=== PATIENT | female | born 1995 | race Caucasian/White ===

== ENCOUNTER 2022-04-15 18:45 | Inpatient (IN) | payer BC, SELFPAY ==
--- NOTE | 2022-04-15 18:46 | ED.C_ITS ---
HPI - Psych General: Chief Complaint: Psychiatric Symptoms Stated Complaint: SI/HF Time Seen by Provider: 04/15/22 18:45 History of Present Illness: Ms. Eubanks is a 26-year-old lady with likely history of anxiety depression presenting to the emergency department due to alcohol intoxication and possible suicidal ideation. She reports over the past week drinking more to self medicate from her anxiety and depression. Apparently she was drinking today and went outside and was running around trees when someone saw her and called 911. She does not recall specific statements that she made however likely reports that she was said something about being better off not here. She denies plan to harm herself or history of harming herself. She is not currently on psychiatric medications. Otherwise denies medical concerns. No other specific changes in health, exacerbating, or al leviating factors identified. Upon further observation in the emergency department patient seems to have conversations with the TV. When asked about this she endorses a few year history of feeling like the TV is talking about her or referencing her current situation. Onset (ago): day(s) Duration: getting worse Context: recent alcohol abuse Review of Systems General: Reports: 10 or more systems reviewed and unremarkable except in HPI and below PFSH ED PFSH: Medical History (Updated 04/22/22 @ 00:00 by ) Psychiatric symptoms Physical Exam Const: COMMON NORMALS: alert GENERAL APPEARANCE: cooperative and well developed HENMT: COMMON NORMALS: normocephalic and atraumatic HEAD & SCALP: normocephalic and atraumatic Eye: COMMON NORMALS: conjunctivae normal CONJUNCTIVA: Yes conjunctivae normal SCLERA: sclerae normal Neck/C-Spine: COMMON NORMALS: supple GENERAL: Yes trachea midline Resp: COMMON NORMALS: normal respiratory effort EFFORT & INSPECTION: Yes able to speak in complete sentences Cardio: COMMON NORMALS: regular rate and regular rhythm RATE: regular rate RHYTHM: regular rhythm GI: COMMON NORMALS: Soft to palpation PALPATION: Yes Soft to palpation and No Tenderness to palpation present (GI) PERCUSSION: normal to percussion Extremity: GENERAL: Yes normal exam except as noted and No edema Neuro: COMMON NORMALS: moves all extremities SENSORIUM/ORIENTATION: Yes alert and No Orientation impaired OTHER: Appears clinically intoxicated Psych: COMMON NORMALS: mental status grossly normal and Normal thought process present THOUGHT PROCESS: Normal thought process present Course Vital Signs: Vital signs: Vital Signs Temperature 98.1 F 04/21/22 10:53 Pulse Rate 94 04/21/22 10:53 Respiratory Rate 18 04/21/22 10:53 Blood Pressure 113/79 04/21/22 10:53 Pulse Oximetry 98 04/21/22 10:53 Oxygen Delivery Me thod 04/21/22 06:34 MDM - Psych Medical Decision Making 26-year-old female presenting with possible suicidal ideation in the context of alcohol misuse. Patient appears clinically intoxicated which somewhat limits reliability of additional history. No significant hematologic abnormality, mild evidence of dehydration on metabolic panel. No UTI, hCG negative. Toxic ingestions negative with exception of elevated ethyl alcohol level at 180 mg/dL. No indication for imaging On reassessment patient clinically improved with depressed intoxication but does exhibit evidence of talking to the television. Upon clarification of history this is going on for some period of time. She describes it as just coincidence however I am concerned that she is exhibiting symptoms of ideas of reference or other underlying psychiatric symptoms. The results of ED evaluation were discussed with the patient including plan for admission due to requirement for level of care not available if discharged to prevent significant worsening/deterioration. Patient agreeable with plan. Based on ED evaluation at this point there is no obvious condition that would preclude the patient from inpatient management of psychiatric symptoms. Discussed case with psychiatry service and patient admitted to neuropsych unit. Medical Records I reviewed the patient's medical records. Lab Data I reviewed the patient's lab results. : 04/15/22 19:25 04/15/22 19:25 Laboratory Results WBC 6.2 10^3/uL (4.0-10.0) 04/15/22 19: RBC 4.23 10^6/uL (4.1-5.3) 04/15/22 19:25 Hgb 13.3 g/dL (11.5-15.3) 04/15/22 19: Hct 41.8 % (37.0-47.0) 04/15/22 19:25 MCV 98.8 fl (81-99) 04/15/22 19:25 MCH 31.4 pg (28.0-34.0) 04/15/22 19: MCHC 31.8 g/dL (30.0-36.0) 04/15/22 19: RDW 13.9 % (12.1-15.1) 04/15/22 19:25 Plt Count 251 10^3/cmm (130-400) 04/15/22 19:25 MPV 8.9 fL (7.4-10.4) 04/15/22 19:25 Neut % (Auto) 64.6 % 04/15/22:25 Lymph % (Auto) 25.7 % 04/15/22:25 [place] % (Auto) 7.2 % 04/15/22:25 Eos % (Auto) 1.5 % 04/15/22 19:25 Baso % (Auto) 0.5 % 04/15/22: Neut # (Auto) 3.98 10^3/uL (1.8-7.7) 04/15/22: Lymph # (Auto) 1.6 10^3/uL (0.8-4.8) 04/15/22:25 [place] # (Auto) 0.4 10^3/uL (0.2-0.9) 04/15/22:25 Eos # (Auto) 0.1 10^3/uL (0.0-0.8) 04/15/22:25 Baso # (Auto) 0.0 10^3/uL (0.0-0.1) 04/15/22:25 Nucleated RBC % (auto) 0 % 04/15/22: Nucleated RBCs # 0.0 /100WBC 04/15/22 19:25 Sodium 145 mmol/L (136-145) 04/15/22 19:25 Potassium 3.7 mmol/L (3.5-5.1) 04/15/22 19:25 Chloride 111 mmol/L (98-107) H 04/15/22 19:25 Carbon Dioxide 20 mmol/L (22-29) L 04/15/22 19:25 Anion Gap 17.7 (5-19) 04/15/22 19:25 BUN 15 mg/dL (6-20) 04/15/22 19:25 Creatinine 0.8 mg/dL (0.5-0.9) 04/15/22 19:25 GFR Calculation 86.0 mL/min (90-130) L 04/15/22 19:25 Glucose 123 mg/dL (65-115) H 04/15/22 19:25 Calculated Osmolality 302 mOsm/kg (285-295) H 04/15/22 19:25 Calcium 8.5 mg/dL (8.5-10.5) 04/15/22 19:25 Total Bilirubin 0.3 mg/dL (0.15-1.2) 04/15/22 19:25 AST 11 U/L (0-32) 04/15/22 19:25 ALT 9 U/L (0-33) 04/15/22 19:25 Alkaline Phosphatase 93 U/L (35-105) 04/15/22 19:25 Total Protein 6.7 g/dL (6.6-8.7) 04/15/22 19:25 Albumin 4.3 g/dL (3.5-5.2) 04/15/22 19:25 Globulin 2.4 g/dL (1.3-4.6) 04/15/22 19:25 TSH 0.71 uIU/mL (0.27-4.20) 04/15/22 19:25 HCG, Qual Negative (Negative) 04/15/22 18:50 Urine Color Yellow (Yellow) 04/15/22 18:50 Urine Appearance Clear (CLEAR) 04/15/22 18:50 Urine pH 5 (5-7) 04/15/22 18:50 Ur Specific [place] 1.020 (1.005-1.030) 04/15/22 18:50 Urine Protein Neg (Negative) 04/15/22 18:50 Urine Glucose (UA) Norm (Normal) 04/15/22 18:50 Urine Ketones 1+ (Negative) H 04/15/22 18:50 Urine Blood Neg (Negative) 04/15/22 18:50 Urine Nitrate Negative (Negative) 04/15/22 18:50 Urine Bilirubin Neg (Negative) 04/15/22 18:50 Urine Urobilinogen Norm mg/dL (Negative) 04/15/22 18:50 Ur Leukocyte Esterase Negative (Negative) 04/15/22 18:50 Salicylates < 0.3 mg/dL (3-10) L 04/15/22 19:25 Urine Opiates Screen Negative ng/mL (Negative) 04/15/22 18:50 Acetaminophen < 5.0 ug/mL (10-30) L 04/15/22 19:25 Ur Barbiturates Screen Negative ng/mL (Negative) 04/15/22 18:50 Ur Phencyclidine Scrn Negative ng/mL (Negative) 04/15/22 18:50 Ur Amphetamines Screen Negative ng/mL (Negative) 04/15/22 18:50 U Benzodiazepines Scrn Negative ng/mL (Negative) 04/15/22 18:50 Urine Cocaine Screen Negative ng/mL (Negative) 04/15/22 18:50 U Marijuana (THC) Screen Negative ng/mL (Negative) 04/15/22 18:50 Ethyl Alcohol 180 mg/dL (0-10) H 04/15/22 19:25 Discharge Plan Discharge Patient Disposition: Admitted As Inpatient Admit Provider: Socrates Wheeler Clinical Impression: Alcohol abuse, Depression, Anxiety, Psychiatric symptoms Condition: Stable Discharge Diet: Usual diet and Regular Discharge Activity: Resume usual activity Coding Level of Care Code ED Last Cleaner for Sarah Willoughby
[2022-04-15 18:49] VITALS: BP 114/81; PULSE 111; RESP 18; TEMP 36.8; O2SAT 98; BMI 24.7
[2022-04-15 19:29] LABS: HCG Qualitative Urine. Negative (Negative)
[2022-04-15 19:49] LABS: Basophils % 0.5 %; Eosinophils # 0.1 10^3/uL (0.0-0.8); Eosinophils % 1.5 %; Hematocrit 41.8 % (37.0-47.0); Hemoglobin 13.3 g/dL (11.5-15.3); Lymphocytes # 1.6 10^3/uL (0.8-4.8); Lymphocytes % 25.7 %; Mean Corpuscular HGB Conc 31.8 g/dL (30.0-36.0); Mean Corpuscular Hemoglobin 31.4 pg (28.0-34.0); Mean Corpuscular Volume 98.8 fl (81-99); Mean Platelet Volume 8.9 fL (7.4-10.4); Monocytes # 0.4 10^3/uL (0.2-0.9); Monocytes % 7.2 %; Neutrophils # 3.98 10^3/uL (1.8-7.7); Neutrophils % 64.6 %; Nucleated Red Blood Cells % 0 %; Platelet Count 251 10^3/cmm (130-400); Red Blood Count 4.23 10^6/uL (4.1-5.3); Red Cell Distribution Width 13.9 % (12.1-15.1); White Blood Count 6.2 10^3/uL (4.0-10.0)
[2022-04-15 19:49] LABS: Add Urine Microscopic? NO; Charge for UA Resulting for Rev
[2022-04-15 19:56] LABS: Bilirubin Urine Neg (Negative); Blood Urine Neg (Negative); Glucose Urine UA Norm (Normal); Ketones Urine 1+ (Negative); Leukocyte Esterase Urine Negative (Negative); Nitrate Urine Negative (Negative); Protein Urine Neg (Negative); Urine Appearance Clear (CLEAR); Urine Color Yellow (Yellow); Urobilinogen Urine Norm (Negative); pH Urine 5 (5-7)
[2022-04-15 20:05] LABS: Amphetamines Screen Urine Negative (Negative); Barbiturates Screen Urine Negative (Negative); Benzodiazepines Screen Urine Negative (Negative); Cocaine Screen Urine Negative (Negative); Opiate Screen Urine Negative (Negative); PCP Screen Urine Negative (Negative); THC Screen Urine Negative (Negative)
[2022-04-15 20:12] LABS: Alanine Aminotransferase 9 U/L (0-33); Albumin Level 4.3 g/dL (3.5-5.2); Alcohol Level 180 mg/dL (0-10); Alkaline Phosphatase 93 U/L (35-105); Anion Gap 17.7 (5-19); Aspartate Amino Transferase 11 U/L (0-32); Blood Urea Nitrogen 15 mg/dL (6-20); Calcium 8.5 mg/dL (8.5-10.5); Carbon Dioxide 20 mmol/L (22-29); Chloride 111 mmol/L (98-107); Globulin 2.4 g/dL (1.3-4.6); Glucose 123 mg/dL (65-115); Osmolality Calculated 302 mOsm/kg (285-295); Potassium 3.7 mmol/L (3.5-5.1); Sodium 145 mmol/L (136-145); Total Bilirubin 0.3 mg/dL (0.15-1.2); Total Protein 6.7 g/dL (6.6-8.7)
[2022-04-15 20:25] LABS: Salicylate < 0.3 mg/dL (3-10)
[2022-04-15 20:26] LABS: Acetaminophen < 5.0 ug/mL (10-30)
[2022-04-15 20:36] LABS: Thyroid Stimulating Hormone 0.71 uIU/mL (0.27-4.20)
[2022-04-16 01:30] VITALS: BP 110/76; PULSE 106; RESP 17; O2SAT 98
[2022-04-16 01:58] VITALS: BP 104/76; PULSE 98; RESP 16; TEMP 36.7; O2SAT 97
[2022-04-16] MEDS: trazodone 50 mg Tablet PO ×2 (03:42→22:39)
[2022-04-16 06:00] VITALS: BP 96/57; PULSE 80; RESP 16; TEMP 36.9; O2SAT 96
[2022-04-16] MEDS: folic acid 1 mg Tablet PO (09:00)
[2022-04-16] MEDS: thiamine 100 mg Tablet PO (09:00)
[2022-04-16] MEDS: multivitamin therapeutic Tablet 1 TAB PO (09:00)
--- NOTE | 2022-04-16 09:12 | PC.OT ---
OT EVALUATION ATTEMPTED. PATIENT AGREEABLE BUT UNABLE TO MAINTAIN ALERTNESS.
--- NOTE | 2022-04-16 09:57 | W.PM.NPUH&PS ---
Providers/Chief Complaint Admitting Physician: Socrates Wheeler MD Primary Care Provider: Clive Falcon Chief Complaint: SI/HF HPI NPU History of Present Illness Stephany Eubanks is a 26 year old female who presented to the emergency department with the following report: Chief Complaint: Psychiatric Symptoms Stated Complaint: SI/HF Time Seen by Provider: 04/15/22 18:45 History of Present Illness: Ms. Eubanks is a 26-year-old lady with likely history of anxiety depression presenting to the emergency department due to alcohol intoxication and possible suicidal ideation. She reports over the past week drinking more to self medicate from her anxiety and depression. Apparently she was drinking today and went outside and was running around trees when someone saw her and called 911. She does not recall specific statements that she made however likely reports that she was said something about being better off not here. She denies plan to harm herself or history of harming herself. She is not currently on psychiatric medications. Otherwise denies medical concerns. No other specific changes in health, exacerbating, or alleviating factors identified. Upon further observation in the emergency department patient seems to have conversations with the TV. When asked about this she endorses a few year history of feeling like the TV is talking about her or referencing her current situation. She was admitted to the neuropsychiatric unit for definitive treatment of those issues. I made multiple attempts in the morning to speak with her but she was mostly arousable and unwilling to really engage. She requested that she be met with when she was better rested and we discussed that that would likely be tomorrow. The best that I could glean was that she reports he does not generally drink at this level as she presented with a blood alcohol of 180. Supposedly there was an issue with her significant other and she was found wandering in the [place]. Initially the thought was that this was somewhat complication without any other issues but then she reportedly has maintained through multiple staff members a recent onset in the past couple of years of significant psychotic symptoms to a degree in which she is unclear when people are around whether they are real or a figment of her imagination. She reported that this issue was the foundational issue of her boyfriend breaking up with her which led to her heavy drinking. We discussed very briefly interested in getting her a trial of antipsychotic and she said okay and she was fading off to sleep. Review of the record shows no interactions with psychiatric services that can be identified. There are records of OB visits including a delivery March 29, 2013. Meds NPU Home Medications Medication Instructions Recorded Confirmed Last Taken Type No Known Home Medications 04/16/22 04/16/22 Unknown History Allergies Allergy/AdvReac Type Severity Reaction Status Date / Time No Known Allergies Allergy Verified 04/15/22 19:03 Mental Status Exam MSE Comments: This letter is well-developed white female in hospital scrubs with limited grooming and near absent eye contact. No abnormal movements of psychomotor retardation. Uncooperative with exam in mild distress. Speech was limited and decreased rate and volume. Mood described as okay but tired, affect lethargic. Thought process linear. Thought content: Patient did not answer questions about lethality but did not answer aggression toward herself or others, there were no delusions reported or noted, she denied acutely attending to internal stimuli. Attention concentration were impaired and memory was not evaluated but none were formally tested. She was arousable and oriented to self and location. Insight and judgment and impulse control appear limited. Vitals/I&O/Wt Last Vital Signs Temp 98.1 F 04/16/22 01:58 Pulse 98 04/16/22 01:58 Resp 16 04/16/22 01:58 BP 104/76 04/16/22 01:58 Pulse Ox 97 04/16/22 01:58 O2 Del Method 04/16/22 02:06 Weight last 48 hrs Weight 63.503 kg Data NPU : 04/15/22 19:25 04/15/22 19:25 A&P Assessment and plan (1) Alcohol abuse: (2) Depression: (3) Anxiety: (4) Psychosis: Plan This is a 26-year-old white female with an unclear history of alcohol use who presented to the emergency department intoxicated reporting psychosis of unclear etiology but not appearing to be in alcohol withdrawal with reports of suicidality, relationship problems and not on medication or in any psychiatric treatment. 1. Patient on medication, on [facility] protocol and we will evaluate for possible antipsychotic once she is more conversant. 2. Continue every 15 minute checks for safety. 3. Encourage individual, group milieu therapy. 4. Encourage sober treatment outside the hospital at the highest level of care to which she does commit. 5. Obtain collateral information. Involuntary Hold Information 96 Hour Hold: 96 Hour Involuntary Admission: No Attestations NPU Medical Necessity Statement*: Inpatient hospitalization is medically necessary and the clinically appropriate intervention at this time. We will monitor/initiate medications and make changes as indicated. She will be in the hospital for over 2 midnights. Likely length of stay 4 to 6 days. Coding Level of Care Code Acute Physics Department Chair for Tracyg Fwd Diagnoses Alcohol abuse F10.10 Depression F32.A Anxiety F41.9 Psychosis F29
[2022-04-16 14:00] VITALS: BP 120/81; PULSE 75; RESP 18; TEMP 36.6; O2SAT 99
[2022-04-16 22:00] VITALS: BP 134/82; PULSE 73; RESP 18; TEMP 37; O2SAT 98
[2022-04-17 06:00] VITALS: BP 110/69; PULSE 67; RESP 16; TEMP 36.4; O2SAT 98; BMI 24.7
--- NOTE | 2022-04-17 08:46 | W.PM.NPUPNS ---
Subjective NPU Subjective: Patient presented today reporting that things are going better and she denied any withdrawal issues related to her drinking. We did have an opportunity to discuss her hearing and seeing things which she was somewhat reticent to discuss. We discussed concerns about being present absent any other recently explanatory cause and discussed the risks, benefits and alternatives of initiating Abilify and she understood and was not sure she wanted to begin medication, reported to consider it. She reports the trazodone has been helpful with sleep which has made a big difference. We discussed the fact that if the medication may reveal some kind of way that she could discontinue it. Mental Status Exam MSE Comments: This letter is well-developed white female in hospital scrubs with appropriate grooming and limited eye contact. No abnormal movements. Cooperative with exam in mild distress. Speech was more normal rate and volume. Mood described as better than yesterday, affect congruent. Thought process linear and organized. Thought content: Denies suicidal or homicidal ideation,, there were no delusions reported or noted, she endorsed recent intermittent auditory and visual hallucinations. Attention and concentration concentration were intact and memory was more reliable but none were formally tested. She was alert and oriented x3. Insight and judgment appear limited and impulse control appears fair. Vitals/I&O/Wt Last Vital Signs Temp 97.6 F 04/17/22 06:00 Pulse 67 04/17/22 06:00 Resp 16 04/17/22 06:00 BP 110/69 04/17/22 06:00 Pulse Ox 98 04/17/22 06:00 O2 Del Method 04/17/22 06:00 Weight last 48 hrs Weight 65.487 kg Weight 63.503 kg Weight 63.503 kg Data NPU : 04/15/22 19:25 04/15/22 19:25 A&P Assessment and plan (1) Alcohol abuse: (2) Depression: (3) Anxiety: (4) Psychosis: Plan This is a 26-year-old white female with an unclear history of alcohol use who presented to the emergency department intoxicated reporting psychosis of unclear etiology but not appearing to be in alcohol withdrawal with reports of suicidality, relationship problems and not on medication or in any psychiatric treatment. 1. Patient on no medication, except on [facility] protocol. Agreed to consider starting Abilify. 2. Continue every 15 minute checks for safety. 3. Encourage individual, group milieu therapy. 4. Encourage sober treatment outside the hospital at the highest level of care to which she does commit. 5. Obtain collateral information. Involuntary Hold Information 96 Hour Hold: 96 Hour Involuntary Admission: No Attestations NPU Medical Necessity Statement*: Inpatient hospitalization is medically necessary and the clinically appropriate intervention at this time. We will monitor/initiate medications and make changes as indicated. Likely length of stay 3-5 days. Coding Level of Care Code Acute Straight Knife Machine Cutter for Sarah Gonzalezd Diagnoses Alcohol abuse F10.10 Depression F32.A Anxiety F41.9 Psychosis F29
[2022-04-17] MEDS: folic acid 1 mg Tablet PO (09:06)
[2022-04-17] MEDS: thiamine 100 mg Tablet PO (09:06)
[2022-04-17] MEDS: multivitamin therapeutic Tablet 1 TAB PO (09:06)
[2022-04-17] MEDS: blistex lip oint 7 gm Tube 1 APPLIC TOPICAL (13:10)
[2022-04-17 14:00] VITALS: BP 115/65; PULSE 85; RESP 16; TEMP 36.6; O2SAT 99
[2022-04-17 19:36] VITALS: BP 120/66; PULSE 84; RESP 16; TEMP 36.6; O2SAT 98
[2022-04-17] MEDS: trazodone 50 mg Tablet PO (21:02)
[2022-04-18 06:00] VITALS: BP 112/76; PULSE 74; RESP 14; TEMP 36.8; O2SAT 100
[2022-04-18] MEDS: multivitamin therapeutic Tablet 1 TAB PO (08:50)
[2022-04-18] MEDS: thiamine 100 mg Tablet PO (08:50)
[2022-04-18] MEDS: folic acid 1 mg Tablet PO (08:50)
[2022-04-18] MEDS: ARIPiprazole 10 mg Tablet 5 MG PO (08:50)
[2022-04-18 14:00] VITALS: BP 112/67; PULSE 91; RESP 16; TEMP 36.6; O2SAT 97
--- NOTE | 2022-04-18 16:18 | W.PM.NPUPNS ---
Subjective NPU Subjective: Patient presents today reporting that the Abilify is making her feel calmer. She reports that she is having no side effects of medication and is feeling like less perceptual issues are present. She reports eating fine and sleeping better and denied any other issues. Mental Status Exam MSE Comments: This letter is well-developed white female in hospital scrubs with appropriate grooming and limited eye contact. No abnormal movements. Cooperative with exam in mild distress. Speech was more normal rate and volume. Mood described as better, affect congruent. Thought process linear and organized. Thought content: Denies suicidal or homicidal ideation,, there were no delusions reported or noted, she endorsed recent intermittent auditory and visual hallucinations. Attention and concentration concentration were intact and memory was more reliable but none were formally tested. She was alert and oriented x3. Insight and judgment appear limited and impulse control appears fair. Vitals/I&O/Wt Last Vital Signs Temp 98.1 F 04/18/22 20:38 Pulse 80 04/18/22 20:38 Resp 18 04/18/22 20:38 BP 116/85 04/18/22 20:38 Pulse Ox 100 04/18/22 20:38 O2 Del Method 04/18/22 14:00 Weight last 48 hrs Weight 65.487 kg Weight 63.503 kg Data NPU : 04/15/22 19:25 04/15/22 19:25 A&P Assessment and plan (1) Alcohol abuse: (2) Depression: (3) Anxiety: (4) Psychosis: Plan This is a 26-year-old white female with an unclear history of alcohol use who presented to the emergency department intoxicated reporting psychosis of unclear etiology but not appearing to be in alcohol withdrawal with reports of suicidality, relationship problems and not on medication or in any psychiatric treatment. 1. Continue current medication. We will consider whether to increase Abilify from 5 to 10 mg prior to discharge. 2. Continue every 15 minute checks for safety. 3. Encourage individual, group milieu therapy. 4. Encourage sober treatment outside the hospital at the highest level of care to which she does commit. 5. Obtain collateral information. Involuntary Hold Information 96 Hour Hold: 96 Hour Involuntary Admission: No Attestations NPU Medical Necessity Statement*: Inpatient hospitalization is medically necessary and the clinically appropriate intervention at this time. We will monitor/initiate medications and make changes as indicated. Likely length of stay 2-4 days. Coding Level of Care Code Acute Alliance Manager for [facility] Fwd Diagnoses Alcohol abuse F10.10 Depression F32.A Anxiety F41.9 Psychosis F29
[2022-04-18] MEDS: trazodone 50 mg Tablet PO (20:18)
[2022-04-18 20:38] VITALS: BP 116/85; PULSE 80; RESP 18; TEMP 36.7; O2SAT 100
[2022-04-19] MEDS: ARIPiprazole 10 mg Tablet 5 MG PO ×2 (09:30→14:52)
[2022-04-19] MEDS: folic acid 1 mg Tablet PO (09:31)
[2022-04-19] MEDS: multivitamin therapeutic Tablet 1 TAB PO (09:31)
[2022-04-19] MEDS: thiamine 100 mg Tablet PO (09:31)
[2022-04-19 14:00] VITALS: BP 114/78; PULSE 92; RESP 17; TEMP 36.5; O2SAT 100
--- NOTE | 2022-04-19 17:03 | P.NPUPN_ITS ---
Subjective NPU Subjective: Patient is in today reporting that she has been feeling better with the Abilify with no clear side effects. She is working with treatment team on viable options for discharge. She considered a clinician however a 1 year to 18-month program seems daunting. We discussed the risks, benefits and alternatives of increasing Abilify to 10 mg p.o. daily and she understood and agreed to proceed as is documented in this note. Mental Status Exam MSE Comments: This letter is well-developed white female in hospital scrubs with appropriate grooming and limited eye contact. No abnormal movements. Cooperative with exam in mild distress. Speech was more normal rate and volume. Mood described as better, affect congruent. Thought process linear and organized. Thought content: Denies suicidal or homicidal ideation,, there were no delusions reported or noted, she denied current auditory or visual hallucinations. Attention and concentration concentration were intact and memory was more reliable but none were formally tested. She was alert and oriented x3. Insight and judgment appear limited, but improving and impulse control appears fair. Vitals/I&O/Wt Last Vital Signs Temp 97.7 F 04/19/22 14:00 Pulse 92 04/19/22 14:00 Resp 17 04/19/22 14:00 BP 114/78 04/19/22 14:00 Pulse Ox 100 04/19/22 14:00 O2 Del Method 04/18/22 14:00 Data NPU : 04/15/22 19:25 04/15/22 19:25 A&P Assessment and plan (1) Alcohol abuse: (2) Depression: (3) Anxiety: (4) Psychosis: Plan This is a 26-year-old white female with an unclear history of alcohol use who presented to the emergency department intoxicated reporting psychosis of unclear etiology but not appearing to be in alcohol withdrawal with reports of suicidality, relationship problems and not on medication or in any psychiatric treatment. 1. Continue current medication. Increase Abilify from 5 to 10 mg. 2. Continue every 15 minute checks for safety. 3. Encourage individual, group milieu therapy. 4. Encourage sober treatment outside the hospital at the highest level of care to which she does commit. 5. Obtain collateral information. Involuntary Hold Information 96 Hour Hold: 96 Hour Involuntary Admission: No Attestations NPU Medical Necessity Statement*: Inpatient hospitalization is medically necessary and the clinically appropriate intervention at this time. We will monitor/initiate medications and make changes as indicated. Likely length of stay 1-3 days. Coding Level of Care Code Acute Latex Ribbon Machine Operator for g Fwd Diagnoses Alcohol abuse F10.10 Depression F32.A Anxiety F41.9 Psychosis F29
[2022-04-19 19:56] VITALS: BP 110/75; PULSE 84; RESP 18; TEMP 36.8; O2SAT 98
[2022-04-19] MEDS: trazodone 50 mg Tablet PO (20:50)
[2022-04-20 06:00] VITALS: BP 117/71; PULSE 69; RESP 18; TEMP 37.1; O2SAT 96
[2022-04-20] MEDS: folic acid 1 mg Tablet PO (09:34)
[2022-04-20] MEDS: ARIPiprazole 10 mg Tablet PO (09:34)
[2022-04-20] MEDS: multivitamin therapeutic Tablet 1 TAB PO (09:34)
[2022-04-20] MEDS: thiamine 100 mg Tablet PO (09:34)
--- NOTE | 2022-04-20 13:56 | W.PM.NPUPNS ---
Subjective NPU Subjective: Patient presents today reporting that she is tolerating the medication well and denied any significant side effects. She reports that she is feeling better overall and is working with the treatment team for appropriate outpatient services. We discussed her getting a top case assembler to assist her in navigating some of the challenges given that she is not going to a women's nursing home where that might be more likely. We discussed the likelihood of discharge in the next 48 hours. Mental Status Exam MSE Comments: This letter is well-developed white female in hospital scrubs with appropriate grooming and limited eye contact. No abnormal movements. Cooperative with exam in no acute distress. Speech was more normal rate and volume. Mood described as better, affect congruent. Thought process linear and organized. Thought content: Denies suicidal or homicidal ideation,, there were no delusions reported or noted, she denied current auditory or visual hallucinations. Attention and concentration concentration were intact and memory was more reliable but none were formally tested. She was alert and oriented x3. Insight and judgment appear limited, but improving and impulse control appears fair. Vitals/I&O/Wt Last Vital Signs Temp 98.8 F 04/20/22 06:00 Pulse 69 04/20/22 06:00 Resp 18 04/20/22 06:00 BP 117/71 04/20/22 06:00 Pulse Ox 96 04/20/22 06:00 O2 Del Method 04/20/22 06:00 Data NPU : 04/15/22 19:25 04/15/22 19:25 A&P Assessment and plan (1) Alcohol abuse: (2) Depression: (3) Anxiety: (4) Psychosis: Plan This is a 26-year-old white female with an unclear history of alcohol use who presented to the emergency department intoxicated reporting psychosis of unclear etiology but not appearing to be in alcohol withdrawal with reports of suicidality, relationship problems and not on medication or in any psychiatric treatment. 1. Continue current medication. Increased Abilify from 5 to 10 mg. 2. Continue every 15 minute checks for safety. 3. Encourage individual, group milieu therapy. 4. Encourage sober treatment outside the hospital at the highest level of care to which she does commit. 5. Plan for discharge to SOC. Involuntary Hold Information 96 Hour Hold: 96 Hour Involuntary Admission: No Attestations NPU Medical Necessity Statement*: Inpatient hospitalization is medically necessary and the clinically appropriate intervention at this time. We will monitor/initiate medications and make changes as indicated. Likely length of stay 1-2 days. Coding Level of Care Code Acute Medical Office Assistant for g Fwd Diagnoses Alcohol abuse F10.10 Depression F32.A Anxiety F41.9 Psychosis F29
[2022-04-20 14:00] VITALS: BP 124/76; PULSE 81; RESP 16; TEMP 37.1; O2SAT 100
[2022-04-20] MEDS: trazodone 50 mg Tablet PO (20:35)
[2022-04-20 22:00] VITALS: BP 123/69; PULSE 91; RESP 17; TEMP 36.9; O2SAT 98
[2022-04-21 05:58] VITALS: BP 123/69; PULSE 91; RESP 17; TEMP 36.9; O2SAT 98
[2022-04-21 06:34] VITALS: BP 113/79; PULSE 94; RESP 18; TEMP 36.7; O2SAT 98
[2022-04-21] MEDS: folic acid 1 mg Tablet PO (08:57)
[2022-04-21] MEDS: ARIPiprazole 10 mg Tablet PO (08:57)
[2022-04-21] MEDS: thiamine 100 mg Tablet PO (08:57)
[2022-04-21] MEDS: multivitamin therapeutic Tablet 1 TAB PO (08:57)
--- NOTE | 2022-04-21 09:52 | W.PM.NPUDCS ---
Diagnoses at Discharge Discharge Diagnosis (1) Alcohol abuse: Status: Acute (2) Depression: Status: Resolved (3) Anxiety: Status: Acute (4) Psychosis: Status: Acute Reason for Visit Reason for Visit: SI/HF Brief History: History of Present Illness Stephany Eubanks is a 26 year old female who presented to the emergency department with the following report: Chief Complaint: Psychiatric Symptoms Stated Complaint: SI/HF Time Seen by Provider: 04/15/22 18:45 History of Present Illness:?? Ms. Eubanks is a 26-year-old lady with likely history of anxiety depression presenting to the emergency department due to alcohol intoxication and possible suicidal ideation.? She reports over the past week drinking more to self medicate from her anxiety and depression.? Apparently she was drinking today and went outside and was running around trees when someone saw her and called 911.? She does not recall specific statements that she made however likely reports that she was said something about being better off not here.? She denies plan to harm herself or history of harming herself.? She is not currently on psychiatric medications.? Otherwise denies medical concerns.? No other specific changes in health, exacerbating, or alleviating factors identified. Upon further observation in the emergency department patient seems to have conversations with the TV.? When asked about this she endorses a few year history of feeling like the TV is talking about her or referencing her current situation. She was admitted to the neuropsychiatric unit for definitive treatment of those issues.? I made multiple attempts in the morning to speak with her but she was mostly arousable and unwilling to really engage.? She requested that she be met with when she was better rested and we discussed that that would likely be tomorrow.? The best that I could glean was that she reports he does not generally drink at this level as she presented with a blood alcohol of 180.? Supposedly there was an issue with her significant other and she was found wandering in the [place].? Initially the thought was that this was somewhat complication without any other issues but then she reportedly has maintained through multiple staff members a recent onset in the past couple of years of significant psychotic symptoms to a degree in which she is unclear when people are around whether they are real or a figment of her imagination.? She reported that this issue was the foundational issue of her boyfriend breaking up with her which led to her heavy drinking.? We discussed very briefly interested in getting her a trial of antipsychotic and she said okay and she was fading off to sleep.? Review of the record shows no interactions with psychiatric services that can be identified.? There are records of OB visits including a delivery March 29, 2013. Hospital Course Hospital Course She slowly acclimated to the individual, group and milieu therapies provided.? She presented with psychotic symptoms which had not previously been addressed. She was initiated on Abilify which was increased to 10 mg p.o. daily. She was also given thiamine and trazodone. She had some residential and other psychosocial challenges and worked with the social work team for assistance in those areas. They did find her a bed at [facility] and we recommended her getting a case worker given she was not going to a women's skilled nursing for the type of assistance she will need. She was able to contract for safety outside of the hospital, prior to discharge.? During the hospitalization, patient had routine laboratory studies which were within normal limits except for few outliers.? Additionally there was a general medical evaluation which was also within normal limits and revealed no new acute processes. Discharge Summary: At the time of discharge, lethality was denied and psychosis was resolving.? Mood and anxiety were well managed.? Patient endorsed a plan to avoid all drugs of abuse and follow-up with the aftercare recommendations of the treatment team.? Patient was evaluated and deemed to be absent credible lethality, and had achieved the maximum benefit from an inpatient hospitalization, so was discharged. Involuntary Hold Information 96 Hour Hold: 96 Hour Involuntary Admission: No Mental Status Exam MSE Comments: This letter is well-developed white female in hospital scrubs with appropriate grooming and limited eye contact. No abnormal movements. Cooperative with exam in no acute distress. Speech was more normal rate and volume. Mood described as better, affect congruent. Thought process linear and organized. Thought content: Denies suicidal or homicidal ideation,, there were no delusions reported or noted, she denied current auditory or visual hallucinations. Attention and concentration concentration were intact and memory was more reliable but none were formally tested. She was alert and oriented x3. Insight and judgment appear limited, but improving and impulse control appears fair. Discharge Data Studies Completed and Pending: Laboratory Results WBC 6.2 10^3/uL (4.0- 10.0) 04/15/22 19:25 RBC 4.23 10^6/uL (4.1 -5.3) 04/15/22: Hgb 13.3 g/dL (11.5-1 5.3) 04/15/22: Hct 41.8 % (37.0-47.0 ) 04/15/22: MCV 98.8 fl (81-99) 04/15/22: MCH 31.4 pg (28.0-34. 0) 04/15/22: MCHC 31.8 g/dL (30.0-3 6.0) 04/15/22: RDW 13.9 % (12.1-15.1 ) 04/15/22: Plt Count 251 10^3/cmm (130 -400) 04/15/22: MPV 8.9 fL (7.4-10.4) 04/15/22: Neut % (Auto) 64.6 % 04/15/22: Lymph % (Auto) 25.7 % 04/15/22: Mariposa % (Auto) 7.2 % 04/15/22: Eos % (Auto) 1.5 % 04/15/22: Baso % (Auto) 0.5 % 04/15/22: Neut # (Auto) 3.98 10^3/uL (1.8 -7.7) 04/15/22: Lymph # (Auto) 1.6 10^3/uL (0.8- 4.8) 04/15/22: Mariposa # (Auto) 0.4 10^3/uL (0.2- 0.9) 04/15/22: Eos # (Auto) 0.1 10^3/uL (0.0- 0.8) 04/15/22: Baso # (Auto) 0.0 10^3/uL (0.0- 0.1) 04/15/22: Nucleated RBC % (a uto) 0 % 04/15/22: Nucleated RBCs # 0.0 /100WBC 04/15/22: Sodium 145 mmol/L (136-1 45) 04/15/22:25 Potassium 3.7 mmol/L (3.5-5 .1) 04/15/22 19:25 Chloride 111 mmol/L (98-10 7) H 04/15/22 19:25 Carbon Dioxide 20 mmol/L (22-29) L 04/15/22 19:25 Anion Gap 17.7 (5-19) 04/15/22 19:25 BUN 15 mg/dL (6-20) 04/15/22 19:25 Creatinine 0.8 mg/dL (0.5-0. 9) 04/15/22 19:25 GFR Calculation 86.0 mL/min (90-1 30) L 04/15/22 19:25 Glucose 123 mg/dL (65-115 ) H 04/15/22 19:25 Calculated Osmolal ity 302 mOsm/kg (285- 295) H 04/15/22 19:25 Calcium 8.5 mg/dL (8.5-10 .5) 04/15/22 19:25 Total Bilirubin 0.3 mg/dL (0.15-1 .2) 04/15/22 19:25 AST 11 U/L (0-32) 04/15/22 19:25 ALT 9 U/L (0-33) 04/15/22 19:25 Alkaline Phosphata se 93 U/L (35-105) 04/15/22 19:25 Total Protein 6.7 g/dL (6.6-8.7 ) 04/15/22 19:25 Albumin 4.3 g/dL (3.5-5.2 ) 04/15/22 19:25 Globulin 2.4 g/dL (1.3-4.6 ) 04/15/22 19:25 TSH 0.71 uIU/mL (0.27 -4.20) 04/15/22 19:25 HCG, Qual Negative (Negati ve) 04/15/22 18:50 Urine Color Yellow (Yellow) 04/15/22 18:50 Urine Appearance Clear (CLEAR) 04/15/22 18:50 Urine pH 5 (5-7) 04/15/22 18:50 Ur Specific Gravit y 1.020 (1.005-1.0 30) 04/15/22 18:50 Urine Protein Neg (Negative) 04/15/22 18:50 Urine Glucose (UA) Norm (Normal) 04/15/22 18:50 Urine Ketones 1+ (Negative) H 04/15/22 18:50 Urine Blood Neg (Negative) 04/15/22 18:50 Urine Nitrate Negative (Negati ve) 04/15/22 18:50 Urine Bilirubin Neg (Negative) 04/15/22 18:50 Urine Urobilinogen Norm mg/dL (Negat boo) 04/15/22 18:50 Ur Leukocyte Michell ase Negative (Negati ve) 04/15/22 18:50 Salicylates < 0.3 mg/dL (3-10 ) L 04/15/22 19:25 Urine Opiates Scre en Negative ng/mL (N egative) 04/15/22 18:50 Acetaminophen < 5.0 ug/mL (10-3 0) L 04/15/22 19:25 Ur Barbiturates Sc reen Negative ng/mL (N egative) 04/15/22 18:50 Ur Phencyclidine S crn Negative ng/mL (N egative) 04/15/22 18:50 Ur Amphetamines Sc reen Negative ng/mL (N egative) 04/15/22 18:50 U Benzodiazepines Scrn Negative ng/mL (N egative) 04/15/22 18:50 Urine Cocaine Scre en Negative ng/mL (N egative) 04/15/22 18:50 U Marijuana (THC) Screen Negative ng/mL (N egative) 04/15/22 18:50 Ethyl Alcohol 180 mg/dL (0-10) H 04/15/22 19:25 Vitals: Last Vital Signs Temp 98.1 F 04/21/22 06:34 Pulse 94 04/21/22 06:34 Resp 18 04/21/22 06:34 BP 113/79 04/21/22 06:34 Pulse Ox 98 04/21/22 06:34 O2 Del Method 04/21/22 06:34 Discharge Plan Discharge Patient Disposition: Home Condition: Stable Prescriptions: New trazodone 50 mg Tablet 50 mg PO BEDTIME PRN (Reason: Sleep) 30 Days Qty: 30 1RF aripiprazole 10 mg Tablet 10 mg PO DAILY 30 Days Qty: 30 1RF Vitamin B-1 (mononitrate) 100 mg Tablet 100 mg PO DAILY 30 Days Qty: 30 1RF Discharge Orders: Discharge Order (Routine); Ordered 04/21/22 Ordered By: Socrates Wheeler Referrals: Alda-Stevie Kumar [Other] (Alda stated to call her for casemanagement services and she will contact you after discharge.) [facility] [Other] - 04/21/22 [facility] [Outside] - 1-3 days (Walk in status from Monday through Monday from 7:30 am to 3:00 pm. Your [facility] application has been turned in. ) Caleb Bello MD [Physician] - 04/28/22 8:00 am (Follow up.) Discharge Diet: Usual diet and Regular Discharge Activity: Resume usual activity Patient Instructions: Alcohol Abuse, Depression, Generalized Anxiety Disorder (ED), Psychotic Disorder (DC), Opioid Safety Discharge Attestations NPU Time Spent in Discharge Care*: less than 30 min Specific Discharge Activities: Specific discharge activities: educating patient, discussing with correctional case records supervisor/social workers/dc planners, documenting/other paperwork and evaluating patient/reviewing data Coding Level of Care Code Acute Chg FW DC note Diagnoses Alcohol abuse F10.10 Depression F32.A Anxiety F41.9 Psychosis F29
[2022-04-21 10:53] VITALS: BP 113/79; PULSE 94; RESP 18; TEMP 36.7; O2SAT 98
== END 2022-04-21 11:15 | disposition home or self-care (01) | DRG 897 ==
LOC: ER 23:29 → NP 04-16 01:30
PROVIDERS: Admitting Provider Psychiatry & Neurology Psychiatry; Emergency Provider Emergency Medicine; PCP Family Medicine; Visit Provider Psychiatry & Neurology Psychiatry
DX: F10.129 Alcohol abuse with intoxication, unspecified (principal); R45.851 Suicidal ideations; Y90.6 Blood alcohol level of 120-199 mg/100 ml; F41.8 Other specified anxiety disorders; Z63.0 Problems in relationship with spouse or partner; F29 Unspecified psychosis not due to a substance or known physiological condition; Z59.00 Homelessness unspecified
CPT/HCPCS: 80053; 80306; 80307; 81003; 81025; 84443; 85025; 97150; 97165; 99285